=== PATIENT | male | born 1960 | race Caucasian/White ===

== ENCOUNTER 2017-02-21 14:58 | Emergency (ER) | payer MEDICAID ==
[~2017-02-21] VITALS: Ht 177.8 cm; Wt 95.5 kg
[2017-02-21] MEDS ORDERED: IBUPROFEN 600 MG TABLET PO ONE (16:15)
[2017-02-21 16:43] VITALS: BP 146/83
== END 2017-02-21 16:45 | disposition home or self-care (01) ==
LOC: EMS 15:02
DX: M54.9 Dorsalgia, unspecified (principal); F17.210 Nicotine dependence, cigarettes, uncomplicated; Z02.89 Encounter for other administrative examinations; Z91.013 Allergy to seafood
CPT/HCPCS: 99283